=== PATIENT | female | born 1980 | race Caucasian/White ===

== ENCOUNTER → 2022-12-23 | Outpatient (CLI) | payer BC ==
--- NOTE | 2022-12-24 07:46 | US ---
EXAMINATION TYPE: US pelvis complete transvag DATE OF EXAM: 12/23/2022 COMPARISON: NONE CLINICAL INDICATION: Female, 42 years old with history of N92.1 EXCESSIVE MENSTRUATION; Pt states rec ent menses lasted 14 days, menses heavy TECHNIQUE: Transabdominal sonographic images of the pelvis were acquired. Transvaginal sonographic i mages were medically necessary to better assess the following anatomy: Endometrium Date of LMP: 11/25/2022 FINDINGS: EXAM MEASUREMENTS: Uterus: 10.5 x 6.2 x 6.7 cm Endometrial Stripe: 1.6 cm Right Ovary: 2.6 x 20 x 1.8 cm Left Ovary: 3.0 x 2.4 x 2.3 cm 1. Uterus: Retroverted. The myometrium is heterogeneous, scar visualized 2. Endometrium: Thickened with a tiny 7 x 5 x 4 mm cystic area along the fundal endometrium. 3. Right Ovary: wnl 4. Left Ovary: Simple cyst measuring 2.1 x 1.0 x 1.7 cm 5. Bilateral Adnexa: wnl 6. Posterior cul-de-sac: wnl IMPRESSION: 1. Retroverted uterus. Heterogeneous myometrium could reflect diffuse small fibroid change or adenomy osis. 2. Thickened endometrium up to 1.6 cm. This should correspond to the late secretory phase of the mens trual cycle. A tiny 7 mm cyst within the fundal endometrium is also present. Again, consider the poss ibility of adenomyosis. Also, correlate for a negative status. 3. A 2.1 cm dominant follicle or functional cyst of left ovary. 4. scar visualized.
== END | disposition home or self-care (01) ==
LOC: RADUSWWP 15:44
PROVIDERS: ATTEND Family Medicine
DX: N92.1 Excessive and frequent menstruation with irregular cycle (principal); N85.4 Malposition of uterus; N83.202 Unspecified ovarian cyst, left side; R93.89 Abnormal findings on diagnostic imaging of other specified body structures
CPT/HCPCS: 76830; 76856